=== PATIENT | male | born 1940 | race Caucasian/White ===

== ENCOUNTER 2020-02-02 13:43 | Emergency (ER) | payer MEDICARE ==
--- NOTE | 2020-02-02 14:37 | ED.PDOC ---
History of Present Illness - General Chief Complaint: Respiratory Problem Stated Complaint: COVID + Time Seen by Provider: 02/02/20 14:11 Source: patient Exam Limitations: no limitations - History of Present Illness Initial Comments: DECREASED 02 SATURATIONS LIVES AT ALF HOME (NOT A SNF). ACQUIRED COVID, THUS ADMITTED TO [facility] DURING RECOVERY PROCESS. NO 02 AT BASELINE PRIOR TO COVID. HAS BEEN REQUIRING 2L NC AT [facility]. TODAY SATS DROPPED TO 90% ON 2L, THUS SENT TO ER. SATS IN ER 92% ON 3L NC. PT DENIES SOB, COUGH, OR ANY SX. NO C/O. Severity: moderate Improving Factors: nothing Worsening Factors: nothing Associated Symptoms: denies symptoms Allergies/Adverse Reactions: Allergies NO KNOWN ALLERGY Allergy (Verified 02/02/20 14:14) Review of Systems - Review of Systems Constitutional: Denies: chills, fever EENTM: Denies: nose congestion, throat pain Respiratory: Denies: cough, short of breath Cardiology: Denies: chest pain, palpitations Gastrointestinal/Abdominal: Denies: abdominal pain, nausea Genitourinary: States: no symptoms reported Musculoskeletal: States: no symptoms reported Skin: States: no symptoms reported Neurological: States: no symptoms reported Endocrine: States: no symptoms reported Hematologic/Lymphatic: States: no symptoms reported All other Systems: Reviewed and Negative Past Medical History (General) - Patient Medical History Hx Congestive Heart Failure: No Hx Hypertension: Yes Hx Gastroesophageal Reflux: Yes Surgical History: no surgical history - Vaccination History Hx Influenza Vaccination: Yes Hx Pneumococcal Vaccination: Yes - Activities of Daily Living [facility] (if applicable):: [facility] (if applicable):: None - Female History Patient is a Female of Child Bearing Age (10 -59 yrs old): No Family Medical History - Family History Mother Family History: Unknown Physical Exam - Physical Exam General Appearance: Alert, No apparent distress Eye Exam: bilateral normal Ears, Nose, Throat: normal ENT inspection, normal pharynx Neck: non-tender, full range of motion, supple Respiratory: lungs clear, normal breath sounds, no respiratory distress, no accessory muscle use Cardiovascular/Chest: regular rate, rhythm, no edema, no gallop, no JVD, no murmur Peripheral Pulses: radial,right: 2+, radial,left: 2+ Gastrointestinal/Abdominal: non tender, soft Rectal Exam: deferred Back Exam: normal inspection, no CVA tenderness Extremity: normal range of motion, normal inspection, no calf tenderness Neurologic: variety performer II-XII nml as tested, no motor/sensory deficits, alert, normal mood/affect, oriented x 3 Skin Exam: normal color, warm/dry Lymphatic: no adenopathy Progress - Results/Orders Results/Orders: COVID POS EXPECTED. LABS EXPECTED FROM COVID (MILD LYMPHOPENIA, ELEV CRP, MILDLY ELEV D-DIMER AT 514, CXR MILD PATCHY INFILTRATES), BUT PT IS TOLERATING COVID VERY WELL WITH 02 SUPPLEMENTATION. 92% ON 3L NC, NO SOB, NO COUGH, THUS IT IS APPROPRIATE FOR PT TO CONTINUE RECOVERING AT THE SHELTER WITH SUPPORTIVE CARE VIA NC O2. SAFE FOR DC BACK TO [facility]. IF HIS CONDITION WERE TO WORSEN OR HE STARTS TO HAVE SX, THEN ADMISSION COULD BE CONSIDERED BUT IS NOT APPROPRIATE FOR ADMISSION AT THIS POINT. CMP NO CONCERNS. LDH WNL, TROP NEG, MAG WNL. Departure - Departure Clinical Impression: Pneumonia due to COVID-19 virus, Hypoxia, On supplemental oxygen by nasal cannula Disposition: Discharge to SNF Condition: Good Departure Forms: ED Discharge - Pt. Copy, Patient Portal Self Enrollment Instructions: Coronavirus Disease 2019 (COVID-19) Diet: resume usual diet Activity: increase activity as tolerated Referrals: SHAHNAZ HAQ [Primary Care Provider] - 1-2 Weeks
--- NOTE | 2020-02-02 14:57 | RAD ---
EXAM DESCRIPTION: Chest,1 View CLINICAL HISTORY: 79 years Male, COVID, REQUIRING 02 SUPPLEMENTATION. COMPARISON: None. TECHNIQUE: AP portable chest. FINDINGS: Heart size is large with centrally prominent pulmonary vascularity. Orthopedic hardware in the lower T-spine with rightward curvature of the thoracolumbar spine. Right hemidiaphragm is elevated. Patchy atelectasis or consolidation of the right perihilar region, upper lingula and both medial lung bases. No pneumothorax or pleural effusion. Bones are unremarkable. IMPRESSION: Large heart without congestive failure. Bilateral patchy infiltrates or partial volume loss. Electronically signed by: Alexandro Morales MD 02/02/2020 2:56 PM [employer]LECTRICAL TESTER
[2020-02-02 18:46] VITALS: BP 125/64; TEMP 97.9; O2SAT 99
== END 2020-02-02 18:46 ==
LOC: ER 13:43
DX: U07.1 COVID-19 (principal); J12.89 Other viral pneumonia; R09.02 Hypoxemia; I10 Essential (primary) hypertension; K21.9 Gastro-esophageal reflux disease without esophagitis; Z99.81 Dependence on supplemental oxygen